=== PATIENT | female | born 2000 | race Two or more races ===

== ENCOUNTER 2021-12-17 08:17 | Outpatient (CLI) | payer OTHER | END 2021-12-17 08:28 | disposition home or self-care (01) | LOC: SONOGRAMA 08:17 | PROVIDERS: ATTEND Obstetrics & Gynecology | DX: R10.2 Pelvic and perineal pain (principal); N94.10 Unspecified dyspareunia ==

== ENCOUNTER 2022-01-21 09:27 | Outpatient (CLI) | payer OTHER | END 2022-01-21 09:41 | disposition home or self-care (01) | LOC: SONOGRAMA 09:27 | PROVIDERS: ATTEND Obstetrics & Gynecology | DX: E03.9 Hypothyroidism, unspecified (principal) ==

== ENCOUNTER 2025-01-21 08:50 | Outpatient (CLI) | payer OTHER ==
[2025-01-21 11:17] LABS: HEMATOCRIT 35.3 % (36.0-45.00); HEMOGLOBIN 12.3 g/dL (12.0-15.00); MEAN CELL VOLUME 89.6 fL (80.00-100.00); MEAN CORPUSCULAR HEMOGLOBIN 31.2 pg (27.00-32.0); MEAN CORPUSCULAR HGB CONC 34.9 g/dl (32.0-36.0); PLATELET COUNT 235 K/uL (150-450); RED BLOOD COUNT 3.94 M/uL (4.00-6.00); RED CELL DISTRIBUTION WIDTH 12.8 % (11.5-14.5)
[2025-01-21 11:54] LABS: COL EPI 99 SECONDS (82-175)
[2025-01-21 12:01] LABS: INR 1.09; PARTIAL THROMBOPLASTIN TIME 29.7 SECONDS (22.0-34.0); PROTHROMBIN TIME 11.8 SECONDS (9.0-11.5)
[2025-01-21 12:17] LABS: ALBUMIN 4.3 gm/dL (3.4-5.0); BILIRUBIN TOTAL 1.06 mg/dL (0.3-1.2); CALCIUM 9.1 mg/dL (8.5-10.1); CREATININE SERUM 0.51 mg/dL (0.55-1.02); FERRITIN 12.8 NG/ML (8-252); GFR 145.77; GLOBULINA 3.6 G/DL (2.4-3.5); POTASSIUM 4.22 mEq/L (3.5-5.1); TOTAL PROTEIN 7.9 gm/dL (6.4-8.2); TSH 1.15 uIU/mL (0.358-3.74)
[2025-01-21 13:06] LABS: MANUAL PLATELET COUNT 286
[2025-01-21 13:07] LABS: PLATELET ESTIMATE NORMAL (NORMAL)
[2025-01-21 13:14] LABS: FOLIC ACID 13.92 ng/ml (4.78-20)
[2025-01-22 15:05] LABS: hgb a 94.8 % (96.4-98.8); hgb a2 2.5 % (1.8-3.2); hgb f 2.7 % (0.0-2.0); hgb s 0 % (0.0)
[2025-01-23 09:05] LABS: ANTI THYROID PEROXIDASE 9 IU/mL (0-34); TRANSFERIN 319 mg/dL (192-364)
== END 2025-01-21 09:19 | disposition home or self-care (01) ==
LOC: LAB 08:50
PROVIDERS: ATTEND Internal Medicine Hematology & Oncology
DX: D68.32 Hemorrhagic disorder due to extrinsic circulating anticoagulants (principal); D50.8 Other iron deficiency anemias; Z79.1 Long term (current) use of non-steroidal anti-inflammatories (NSAID); G43.009 Migraine without aura, not intractable, without status migrainosus; R79.9 Abnormal finding of blood chemistry, unspecified; R74.02 Elevation of levels of lactic acid dehydrogenase [LDH]; K76.89 Other specified diseases of liver; I10 Essential (primary) hypertension; D63.8 Anemia in other chronic diseases classified elsewhere; D55.9 Anemia due to enzyme disorder, unspecified; D51.0 Vitamin B12 deficiency anemia due to intrinsic factor deficiency; E06.3 Autoimmune thyroiditis; E03.8 Other specified hypothyroidism

== ENCOUNTER 2025-02-05 08:17 | Outpatient (CLI) | payer OTHER | END 2025-02-05 08:20 | disposition home or self-care (01) | LOC: SONOGRAMA 08:17 | PROVIDERS: ATTEND Internal Medicine Hematology & Oncology | DX: E04.2 Nontoxic multinodular goiter (principal); D50.8 Other iron deficiency anemias; D56.4 Hereditary persistence of fetal hemoglobin [HPFH]; D68.32 Hemorrhagic disorder due to extrinsic circulating anticoagulants; Z79.1 Long term (current) use of non-steroidal anti-inflammatories (NSAID); G43.009 Migraine without aura, not intractable, without status migrainosus; E06.3 Autoimmune thyroiditis ==

== ENCOUNTER → 2025-08-28 10:40 | Outpatient (CLI) | payer OTHER ==
[~2025-08-28] VITALS: Ht 172.7 cm; Wt 93.0 kg
[2025-08-28 11:07] LABS: BASO % 0.5 % (0.1-1.2); EOS # 0.51 (0.04-0.54); EOS % 9.1 % (0.7-7.0); LYMPH # 1.96 (1.18-3.74); LYMPH % 35.0 % (19.3-53.1); MEAN PLATELET VOLUME 10.70 fl (9.4-12.4); MONO # 0.35 (0.24-0.82); MONO % 6.3 % (4.7-12.5); NEUT # 2.73 (1.56-6.13); NEUT % 48.7 % (34.0-71.1); RED CELL DISTRIBUTION WIDTH 11.4 % (11.6-14.4)
[2025-08-28 11:24] VITALS: BP 160/91
[2025-08-28 11:31] LABS: INR 1.07
[2025-08-28 12:24] LABS: ALT/SGPT 17.0 U/L (12-78); AST/SGOT 11.0 U/L (15-37); BILIRUBIN TOTAL 0.66 mg/dL (0.3-1.2); BUN CREA RATIO 19.0 (7.0-25.0); CREATININE SERUM 0.53 mg/dL (0.55-1.02); FE 37.0 ug/dl (50-170); GFR 138.38; GLOBULINA 3.1 G/DL (2.4-3.5); GLUCOSE FASTING 86.0 mg/dL (65-100); LDH 154.0 U/L (84-246); OSMOLALITY SERUM 283.0 MOSM/KG (275-295)
[2025-08-28 14:56] LABS: FOLIC ACID 13.19 ng/ml (4.78-20)
== END | disposition home or self-care (01) ==
LOC: LAB 10:40
PROVIDERS: ATTEND Internal Medicine Hematology & Oncology
DX: D50.8 Other iron deficiency anemias (principal); R79.9 Abnormal finding of blood chemistry, unspecified; I10 Essential (primary) hypertension; R74.02 Elevation of levels of lactic acid dehydrogenase [LDH]; K76.89 Other specified diseases of liver; D68.8 Other specified coagulation defects; D56.4 Hereditary persistence of fetal hemoglobin [HPFH]; D68.32 Hemorrhagic disorder due to extrinsic circulating anticoagulants; Z79.1 Long term (current) use of non-steroidal anti-inflammatories (NSAID); G43.009 Migraine without aura, not intractable, without status migrainosus; E03.9 Hypothyroidism, unspecified